=== PATIENT | female | born 1960 | race Caucasian/White ===

== ENCOUNTER 2017-08-08 18:25 | Emergency (ER) | payer MEDICAID ==
[~2017-08-08] VITALS: Ht 160 cm; Wt 75.3 kg
[2017-08-08 18:50] VITALS: Ht 160 cm; Wt 75.3 kg
[2017-08-08 23:20] VITALS: BP 106/65
== END 2017-08-08 23:20 | disposition home or self-care (01) ==
LOC: ED 18:25
DX: J40 Bronchitis, not specified as acute or chronic (principal)

== ENCOUNTER 2019-09-10 16:33 | Emergency (ER) | payer MEDICAID ==
[~2019-09-10] VITALS: Ht 157.5 cm; Wt 68.5 kg
[2019-09-10 16:47] VITALS: BP 130/68; Ht 157.5 cm; Wt 68.5 kg
[2019-09-10 17:16] LABS: BASOPHIL % 0.6 % (0-2); PLATELET COUNT 214 x10^3mcL (130-400); RED CELL DISTRIBUTION WIDTH 13.1 % (11.5-14.5)
[2019-09-10 17:20] LABS: CALCIUM 9.3 mg/dL (8.5-10.1); CARBON DIOXIDE 30.4 mmol/L (21-32); CHLORIDE SERUM 105 mmol/L (98-107); CREATININE SERUM 0.6 mg/dL (0.6-1.0); GFR1 > 60 mL/min; GLUCOSE SERUM 95 mg/dL (74-106); POTASSIUM SERUM 3.5 mmol/L (3.5-5.1); SODIUM SERUM 143 mmol/L (136-145)
[2019-09-10 17:27] LABS: ALBUMIN 3.9 g/dL (3.4-5.0); ALKALINE PHOSPHATASE 79 U/L (46-116); ALT/SGPT 29 U/L (14-59); AST/SGOT 15 U/L (15-37); BILIRUBIN TOTAL 0.3 mg/dL (0.20-1.00); TOTAL PROTEIN, SERUM 7.5 g/dL (6.4-8.2)
== END 2019-09-10 18:02 | disposition home or self-care (01) ==
LOC: ED 16:33
PROVIDERS: Emergency Medicine
DX: R42 Dizziness and giddiness (principal); E87.5 Hyperkalemia; R11.2 Nausea with vomiting, unspecified; Z86.2 Personal history of diseases of the blood and blood-forming organs and certain disorders involving the immune mechanism
CPT/HCPCS: 36415; J8597